=== PATIENT | female | born 1955 | race Native Hawaiian/Other Pacific Islander ===

== ENCOUNTER 2021-09-26 18:56 | Emergency (ER) | payer MEDICARE, OTHER, SELFPAY ==
[2021-09-26 19:02] VITALS: BP 151/81; PULSE 95; RESP 16; TEMP 36.3; O2SAT 96; BMI 28.3
--- NOTE | 2021-09-26 21:55 | DI.RAD.S_ITS ---
PROCEDURE: XR FOOT LT MIN 3V INDICATIONS: L 3rd toe injury TECHNIQUE: 3 views of the foot were acquired. COMPARISON: None. FINDINGS: Bones: Subtle nondisplaced fracture involving 3rd distal phalangeal tuft is seen. No other fracture or dislocation. No suspicious bony lesions. Soft tissues: No tibiotalar joint effusion. Achilles tendon appears normal. IMPRESSION: Suggestion of subtle nondisplaced fracture involving 3rd distal phalangeal tuft. Dictated by: Brenden Pantoja M.D. on 09/26/2021 at 22:35 Approved by: Brenden Pantoja M.D. on 09/26/2021 at 22:36
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
[2021-09-26] MEDS: HYDROCODONE/ACET 5/325 PREPACK 1 BOTTLE MISC (23:16)
[2021-09-26 23:32] VITALS: BP 161/82; PULSE 85; RESP 18; O2SAT 99
== END 2021-09-26 23:35 | disposition home or self-care (01) ==
PROVIDERS: Emergency Provider Emergency Medicine
DX: S92.535A Nondisplaced fracture of distal phalanx of left lesser toe(s), initial encounter for closed fracture (principal); S90.222A Contusion of left lesser toe(s) with damage to nail, initial encounter; W23.0XXA Caught, crushed, jammed, or pinched between moving objects, initial encounter
CPT/HCPCS: 73630; 99282; 99283